=== PATIENT | male | born 1985 | race Caucasian/White ===

== ENCOUNTER 2019-05-10 17:13 | Emergency (ER) | payer OTHER ==
[2019-05-10] MEDS: SOD CHLORIDE 0.9% 1,000 ML IV (18:42)
[2019-05-10] MEDS: CLINDAMYCIN 600 MG/D5W (PMX) 50 ML IVPB (18:43)
[2019-05-10] MEDS: AMPICILLIN/SULB 3 GM/NS (PMX) 100 ML IVPB (19:27)
[2019-05-10] MEDS: HYDROCODONE/APAP (5/325) TAB PO (19:36)
== END 2019-05-10 20:54 | disposition home or self-care (01) ==
LOC: FTE 17:13
DX: L03.211 Cellulitis of face (principal)
CPT/HCPCS: 96374; 96375; 99284-25